=== PATIENT | female | born 1985 | race Caucasian/White ===

== ENCOUNTER 2019-01-12 14:00 | Emergency (ER) | payer OTHER ==
[2019-01-12 14:13] VITALS: RESP 16
[2019-01-12] MEDS ORDERED: IBUPROFEN 600 MG TAB PO STA (14:26)
[2019-01-12] MEDS ORDERED: ACETAMINOPHEN TAB 325 MG TAB PO STA (14:30)
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
[2019-01-12 16:00] VITALS: BP 128/78; PULSE 72; TEMP 98.7
== END 2019-01-12 15:59 | disposition home or self-care (01) ==
LOC: EC 14:00
DX: S63.92XA Sprain of unspecified part of left wrist and hand, initial encounter (principal); S93.602A Unspecified sprain of left foot, initial encounter; E07.9 Disorder of thyroid, unspecified; Z79.890 Hormone replacement therapy; Z88.0 Allergy status to penicillin; V53.5XXA Driver of pick-up truck or van injured in collision with car, pick-up truck or van in traffic accident, initial encounter; Y92.410 Unspecified street and highway as the place of occurrence of the external cause; Y93.89 Activity, other specified; Y99.0 Civilian activity done for income or pay
CPT/HCPCS: 71046; 99284